=== PATIENT | male | born 1945 | race Caucasian/White ===

== ENCOUNTER 2023-05-04 12:48 | Day surgery (SDC) | payer OTHER ==
[~2023-05-04] VITALS: Ht 177.8 cm; Wt 90.7 kg
[~2023-05-04 12:48] MED LIST: AMLO5TAB PO; ASPI-1822 PO; ENAL20TA46 PO; FOLI1TAB19 PO; LOSA50TA57 PO; METO50TE2 PO; SIMV-373 PO
[2023-05-04] MEDS ORDERED: MIDAZOLAM 5 MG/5 ML VIAL ONE (13:57)
[2023-05-04] MEDS ORDERED: LIDOCAINE 2% 100 MG/5 ML UJET TP ONE ×2 (13:57→14:30)
[2023-05-04] MEDS ORDERED: fentaNYL citrate 0.05 MG/ML VIAL ONE (13:57)
[2023-05-04] MEDS ORDERED: fentaNYL citrate 0.05 MG/ML VIAL IVP ONE (14:30)
== END 2023-05-04 15:23 | disposition home or self-care (01) ==
LOC: MDS 12:48 → MMU 12:50 → MDS 15:23
PROVIDERS: ATTEND Internal Medicine Gastroenterology
DX: Z12.11 Encounter for screening for malignant neoplasm of colon (principal); K64.8 Other hemorrhoids; I10 Essential (primary) hypertension; E11.9 Type 2 diabetes mellitus without complications; Z79.01 Long term (current) use of anticoagulants; Z79.899 Other long term (current) drug therapy; Z95.0 Presence of cardiac pacemaker
CPT/HCPCS: 45378; 82948; J3010; J2250

== ENCOUNTER 2024-03-14 11:10 | Day surgery (SDC) | payer OTHER ==
[~2024-03-14] VITALS: Ht 177.8 cm; Wt 90.7 kg
[2024-03-14] MEDS ORDERED: MIDAZOLAM 2 MG/2 ML VIAL ONE (12:19)
[2024-03-14] MEDS ORDERED: fentaNYL citrate 0.05 MG/ML VIAL ONE (12:19)
[2024-03-14] MEDS: MIDAZOLAM 2 MG/2 ML VIAL IVP ONE (13:02)
== END 2024-03-14 14:32 | disposition home or self-care (01) ==
LOC: MDS 11:10 → MMU 11:11 → MDS 14:32
PROVIDERS: ATTEND Internal Medicine Gastroenterology
DX: K92.1 Melena (principal); I10 Essential (primary) hypertension; E78.5 Hyperlipidemia, unspecified; E11.9 Type 2 diabetes mellitus without complications; Z79.899 Other long term (current) drug therapy; Z98.890 Other specified postprocedural states
CPT/HCPCS: 36415; 43239; 82948; 86677; J2250; J3010